=== PATIENT | male | born 1945 | race Caucasian/White ===

== ENCOUNTER → 2018-05-18 | Outpatient (CLI) | payer MEDICARE ==
[~2018-05-18] MED LIST: ANAPROX DS550 MG PO; CYCLOBENZAPRINE10 MG PO; MOBIC7.5 MG PO
== END | disposition home or self-care (01) ==
LOC: RAD 10:41
DX: M47.892 Other spondylosis, cervical region (principal); M19.012 Primary osteoarthritis, left shoulder; M19.011 Primary osteoarthritis, right shoulder

== ENCOUNTER 2024-08-29 14:36 | Emergency (ER) | payer OTHER ==
[~2024-08-29] VITALS: Ht 182.8 cm; Wt 127.0 kg
[2024-08-29] MEDS ORDERED: Tdap Vaccine 0.5 ML SYR (Adult Vaccine) IM ONE (15:00)
[2024-08-29] MEDS ORDERED: Lidocaine Hydrochloride 2 ML AMP SC ONE (16:40)
[2024-08-29] MEDS ORDERED: SEPTDS PO (17:13)
[2024-08-29] MEDS ORDERED: Sulfamethoxazole/Trimethopri 1 TAB TAB PO ONE (17:15)
== END 2024-08-29 17:32 | disposition home or self-care (01) ==
LOC: ED 14:36
DX: S61.211A Laceration without foreign body of left index finger without damage to nail, initial encounter (principal); W29.3XXA Contact with powered garden and outdoor hand tools and machinery, initial encounter; Y93.89 Activity, other specified; Y92.009 Unspecified place in unspecified non-institutional (private) residence as the place of occurrence of the external cause; Y99.8 Other external cause status